=== PATIENT | male | born 1985 | race Two or more races ===

== ENCOUNTER 2017-05-19 07:48 | Emergency (ER) | payer OTHER ==
[2017-05-19] MEDS ORDERED: FLEXERIL10 MG PO (08:35)
[2017-05-19] MEDS ORDERED: VOLTAREN75 MG PO (08:35)
== END 2017-05-19 08:36 | disposition home or self-care (01) ==
LOC: SED 07:48
DX: S39.012A Strain of muscle, fascia and tendon of lower back, initial encounter (principal); X50.0XXA Overexertion from strenuous movement or load, initial encounter; Y92.69 Other specified industrial and construction area as the place of occurrence of the external cause; Y99.0 Civilian activity done for income or pay
CPT/HCPCS: 99283